=== PATIENT | female | born 1975 | race Hispanic/Latino ===

== ENCOUNTER 2016-09-13 10:33 | Emergency (ER) | payer OTHER ==
[2016-09-13 10:43] VITALS: BP 147/87; PULSE 101; RESP 18; TEMP 97.8; O2SAT 98
[2016-09-13] MEDS ORDERED: Oxycodone/Acetaminophen 5/325 mg Tab PO STA (11:18)
--- NOTE | 2016-09-13 11:20 | C.PDOC ---
History Of Present Illness 40 yr old female presents to the ER requesting refill of her percocet. Patient reports of chronic neck pain, states she gets an MRI of her neck and back every 6 months. Patient was last seen by Dr. Humphries in May 2016. Patient states heat therapy is making her neck and trapezius pain worse. Patient denies chest pain, SOB, nausea, vomiting, suicidal ideation, weakness or numbness. Time Seen by Provider: 09/13/16 11:06 Chief Complaint (Nursing): Back Pain History Per: Patient History/Exam Limitations: no limitations Onset/Duration Of Symptoms: Persistent Past Medical History Reviewed: Historical Data, Nursing Documentation, Vital Signs Vital Signs: Last Vital Signs Temp 97.8 F 09/13/16 10:42 Pulse 101 H 09/13/16 10:42 Resp 18 09/13/16 10:42 BP 147/87 09/13/16 10:42 Pulse Ox 98 09/13/16 11:20 - Medical History PMH: Back Problems, Diverticulitis Family History: States: No Known Family Hx - Social History Hx Tobacco Use: Yes Hx Alcohol Use: No Hx Substance Use: No - Immunization History Hx Tetanus Toxoid Vaccination: No Hx Influenza Vaccination: No Hx Pneumococcal Vaccination: Yes (2012) Review Of Systems Except As Marked, All Systems Reviewed And Found Negative. Cardiovascular: Negative for: Chest Pain Respiratory: Negative for: Shortness of Breath Gastrointestinal: Negative for: Nausea, Vomiting Musculoskeletal: Positive for: Neck Pain (Chronic neck pain ), Other (Trapezius pain ) Neurological: Negative for: Weakness, Numbness Psych: Negative for: Suicidal ideation Physical Exam - Physical Exam Appears: Well, Non-toxic, No Acute Distress Skin: Warm, Dry Head: Atraumatic, Normacephalic Oral Mucosa: Moist Neck: Normal ROM, Supple, Other ((+) Tender trapizues, digitally reproducible Right>Left ) Chest: Symmetrical, No Tenderness Cardiovascular: Rhythm Regular, No Murmur Respiratory: Normal Breath Sounds, No Rales, No Rhonchi, No Stridor, No Wheezing Extremity: Normal ROM, No Swelling Neurological/Psych: Oriented x3, Normal Speech, Normal Motor ED Course And Treatment O2 Sat by Pulse Oximetry: 98 Medical Decision Making Medical Decision Making: PLAN: * Percocet PO NOTE: acute on chronic neck and trapezius pain worse with heating therapies ice therapy educated. extensive percocet and Klonopin regimen on [employer], stopped abruptly 06/18/16 and lost to f/u with Dr. Humphries Unable to refill pt's chronic pain/anxiety meds f/u with PMD/Neuro/Ortho already in place. Disposition Doctor Will See Patient In The: Office Counseled Patient/Family Regarding: Studies Performed, Diagnosis - Disposition Referrals: [facility] [Outside] Alexander Humphries MD [Medical Doctor] - Disposition: HOME/ ROUTINE Disposition Time: 11:20 Condition: GOOD Additional Instructions: ice therapy 1/2 hour per hour, nothing hot! Seek med refills through your chronic pain specialist Follow-up with your Orthopedist/phlebotomy specialist as scheduled. Follow-up in our outpatient clinic for referrals as needed Instructions: Cervical Strain (DC), Chronic Pain (ED) - Clinical Impression Clinical Impression: Neck pain - Scribe Statement The provider has reviewed the documentation as recorded by the Eliot Espinoza Provider Attestation: All medical record entries made by the Eliot were at my direction and personally dictated by me. I have reviewed the chart and agree that the record accurately reflects my personal performance of the history, physical exam, medical decision making, and the department course for this patient. I have also personally directed, reviewed, and agree with the discharge instructions and disposition.
[2016-09-13] MEDS ORDERED: Oxycodone/Acetaminophen 5/325 mg Tab ONE (11:23)
== END 2016-09-13 11:30 | disposition home or self-care (01) ==
LOC: C.ER 10:33
DX: M54.2 Cervicalgia (principal)

== ENCOUNTER 2016-12-15 09:10 | Observation (INO) | payer OTHER ==
--- NOTE | 2016-12-15 09:59 | C.PDOC ---
History Of Present Illness 41-YEAR-OLD FEMALE, PRESENTS TO THE EMERGENCY DEPARTMENT WITH COMPLAINTS OF PERSIST LEFT CP X 5 DAYS. INTERMITTENT, LOCALIZED TOP LEFT CHEST. COMPLETELY RESOLVES W REST. PRESENT W "ANY MOVEMENT". PS ABLE TO DO NORMAL ACTIVITY WO DIFF. NO ASSOC SOB/MAHAN, NV, DIZZY, DIAPH. NO LEG PAIN, SWELL. NO OTHER ASSOC SX. DENIES FHX. +SMOKER. PATIENT NOTES +RELIEF W TYLENOL. PATIENT RAN OUT Call[employer] X 1 WEEK. PS NORMALLY TAKES TID. SHE NOTES ASSOCIATED ANXIETY "BUT CAN' T TELL WHICH CAME FIRST". EXAM MILD DIST NONTOXIC HEENT NEG LUNGS CTA B/L NO W/R/R NO PLEURITIC PAIN CHEST WALL NONTEND CV RRR SINUS TACH ABD NEG SKIN WARM DRY EXT NO SWELL, NONTEND PSYCH CALM COOPERATIVE MILD ANXIOUS Time Seen by Provider: 12/15/16 09:39 Chief Complaint (Nursing): Chest Pain History Per: Patient History/Exam Limitations: no limitations Onset/Duration Of Symptoms: Days Past Medical History Reviewed: Historical Data, Nursing Documentation, Vital Signs Vital Signs: Last Vital Signs Temp 99.1 F 12/15/16 11:59 Pulse 80 12/15/16 11:59 Resp 16 12/15/16 11:59 BP 119/71 12/15/16 11:59 Pulse Ox 95 12/15/16 11:59 - Medical History PMH: Back Problems, Diverticulitis Family History: States: Unknown Family Hx - Social History Hx Tobacco Use: Yes Hx Alcohol Use: No Hx Substance Use: No - Immunization History Hx Tetanus Toxoid Vaccination: No Hx Influenza Vaccination: No Hx Pneumococcal Vaccination: Yes (2012) Review Of Systems Except As Marked, All Systems Reviewed And Found Negative. Constitutional: Negative for: Fever Cardiovascular: Positive for: Chest Pain. Negative for: Palpitations Respiratory: Negative for: Shortness of Breath Gastrointestinal: Negative for: Vomiting Musculoskeletal: Negative for: Back Pain Neurological: Negative for: Weakness, Incoordination Psych: Positive for: Anxiety Physical Exam - Physical Exam Appears: Non-toxic, No Acute Distress Skin: Warm, Dry, No Rash Head: Atraumatic, Normacephalic Eye(s): bilateral: Normal Inspection Nose: Normal Oral Mucosa: Moist Lips: Normal Appearing Neck: Normal ROM Cardiovascular: Rhythm Regular, No Murmur Respiratory: Normal Breath Sounds, No Accessory Muscle Use, No Rales, No Rhonchi , No Wheezing, Other (NO PLEURITIC PAIN) Gastrointestinal/Abdominal: Soft, No Tenderness Extremity: Normal ROM Neurological/Psych: Oriented x3, Normal Speech, Other (Mild anxious) ED Course And Treatment - Laboratory Results Result Diagrams: 12/15/16 10:14 12/15/16 10:14 ECG: Interpreted By Me ECG Rhythm: Sinus Tachycardia ECG Interpretation: Abnormal Rate From EC O2 Sat by Pulse Oximetry: 98 Progress - Data Reviewed Data Reviewed: Lab, Diagnostic imaging, EKG, Old records ED OBSERVATION Discharge: Yes Date of observation admission: 12/15/16 Time of observation admission: 09:30 - Observation admission statement Patient is being placed in observation because:: CHEST PAIN; TACHYCARDIA; ANXIETY - Goals of Observation Goals of observation are:: NEG ACS; SX IMPROVE - Progress Note Progress Note: 12/15/16 12:32 VSS NAD. TROP, DIMER NEG. PROBABLE MUSCLE PAIN. ADVISED NEED FOR PMD FU Disposition Counseled Patient/Family Regarding: Studies Performed, Diagnosis, Need For Followup, Rx Given - Disposition Disposition: HOME/ ROUTINE Disposition Time: 12:32 Condition: IMPROVED - Clinical Impression Clinical Impression: Chest pain, Anxiety - Scribe Statement The provider has reviewed the documentation as recorded by the Scribe (Perla Bernard) All medical record entries made by the Scribe were at my direction and personally dictated by me. I have reviewed the chart and agree that the record accurately reflects my personal performance of the history, physical exam, medical decision making, and the department course for this patient. I have also personally directed, reviewed, and agree with the discharge instructions and disposition.
[2016-12-15 10:20] LABS: BASO % 0.4 % (0.0-2.0); EOS # 0.3 K/uL (0.0-0.7); EOS % 4.3 % (0.0-4.0); LYMPH # 1.7 K/uL (1.0-4.3); LYMPH % 21.9 % (20.0-40.0); MEAN CELL VOLUME 98.5 fL (81.0-99.0); MEAN CORPUSCULAR HEMOGLOBIN 33.1 pg (27.0-31.0); MEAN CORPUSCULAR HGB CONC 33.6 g/dL (33.0-37.0); MEAN PLATELET VOLUME 8.3 fL (7.2-11.7); MONO # 0.7 K/uL (0.0-0.8); MONO % 9.3 % (0.0-10.0); RED CELL DISTRIBUTION WIDTH 12.9 % (11.5-14.5); WHITE BLOOD COUNT 7.6 K/uL (4.8-10.8)
[2016-12-15 10:31] LABS: CHLORIDE 103 mmol/L (98-107); POTASSIUM 4.2 mmol/L (3.6-5.2); SODIUM 141 mmol/L (132-148)
[2016-12-15 10:34] LABS: BLOOD UREA NITROGEN 10 mg/dL (7-17); CARBON DIOXIDE 25 mmol/L (22-30); GFR AFRICAN-AMERICAN > 60
[2016-12-15 10:35] LABS: CALCIUM 8.8 mg/dl (8.6-10.4); GLUCOSE,RANDOM 106 mg/dL (65-105)
[2016-12-15 12:00] VITALS: BP 119/71; PULSE 80; RESP 16; TEMP 99.1
--- NOTE | 2016-12-15 12:08 | RAD ---
HISTORY: COMPARISON: No prior. TECHNIQUE: Chest PA and lateral FINDINGS: LINES AND TUBES: None. LUNG AND PLEURA: LThe lungs are well inflated and clear . There are no pleural effusions or pneumothorax. HEART AND MEDIASTINUM: The heart is not enlarged. The hilar and mediastinal contours are within normal limits. SKELETAL STRUCTURES: The bony structures are within normal limits for the patient's age. VISUALIZED UPPER ABDOMEN: Normal. OTHER FINDINGS: None. IMPRESSION: No active pulmonary disease.
[2016-12-15] MEDS ORDERED: Lidocaine 5% Patch TD STA (12:32)
[2016-12-15 12:33] VITALS: O2SAT 98
[2016-12-15] MEDS ORDERED: Lidocaine 5% Patch TD ONE (12:34)
--- NOTE | 2016-12-24 08:47 | CARD ---
APPROVED REPORT EKG Measurement Heart [id number] <Conclusion> Sinus tachycardia Possible Left atrial enlargement Borderline ECG
== END 2016-12-15 12:33 | disposition home or self-care (01) ==
LOC: C.ER 09:10 → C.9OBSV 09:30
PROVIDERS: ADMIT Emergency Medicine; ATTEND Emergency Medicine
DX: R07.9 Chest pain, unspecified (principal); F41.9 Anxiety disorder, unspecified; Z87.891 Personal history of nicotine dependence; R00.0 Tachycardia, unspecified
CPT/HCPCS: 36415; 71020; 80048; 84484; 85025; 85378; 99285; G0378

== ENCOUNTER 2018-08-12 09:44 | Outpatient (CLI) | payer OTHER | END 2018-08-12 09:45 | disposition home or self-care (01) | LOC: C.USIC 09:45 | DX: D21.9 Benign neoplasm of connective and other soft tissue, unspecified (principal); N94.6 Dysmenorrhea, unspecified ==